=== PATIENT | female | born 1990 | race Hispanic/Latino ===

== ENCOUNTER 2021-08-26 21:01 | Emergency (ER) | payer SELFPAY ==
[2021-08-26] MEDS ORDERED: Acetaminophen 325 MG TAB ONE (22:11)
[2021-08-27 20:54] LABS: SARS-CoV-2 PCR by NAA DETECTED (NotDetected)
== END 2021-08-27 00:45 | disposition home or self-care (01) ==
LOC: CSHERS 21:01
DX: U07.1 COVID-19 (principal)
CPT/HCPCS: 87804; 99283; U0003; U0005